=== PATIENT | female | born 1965 | race American Indian/Alaskan Native ===

== ENCOUNTER 2019-02-06 12:35 | Emergency (ER) | payer OTHER ==
[~2019-02-06] VITALS: Ht 170.2 cm; Wt 113.4 kg
[2019-02-06] MEDS ORDERED: VITAMIN D1000 UNIT PO (12:46)
[2019-02-06] MEDS ORDERED: LEVOTHYROXINE100 MCG PO (12:47)
[2019-02-06] MEDS ORDERED: FUROSEMIDE40 MG PO (12:47)
[2019-02-06] MEDS ORDERED: CLARITIN5 MG PO (12:48)
== END 2019-02-06 13:52 | disposition home or self-care (01) ==
LOC: ED 12:35
DX: S80.12XA Contusion of left lower leg, initial encounter (principal); I10 Essential (primary) hypertension; Z88.2 Allergy status to sulfonamides; Z79.899 Other long term (current) drug therapy; W18.40XA Slipping, tripping and stumbling without falling, unspecified, initial encounter
CPT/HCPCS: 73590; 96372; 99283-25; J1885

== ENCOUNTER 2019-12-23 05:40 | Day surgery (SDC) | payer OTHER ==
[~2019-12-23] VITALS: Ht 170.2 cm; Wt 123.4 kg
--- NOTE | ~2019-12-23 | OR ---
[facility] [address] [place], [place] [address] Draft DATE OF OPERATION: 12/23/2019 SURGEON: Felecia Balderrama MD DATE OF PROCEDURE: 12/23/2019 CYLINDER PRESS OPERATOR: Dr. Ricardo PREOPERATIVE DIAGNOSES: Complex atypical endometrial hyperplasia, morbid obesity. POSTOPERATIVE DIAGNOSES: Complex atypical endometrial hyperplasia, morbid obesity, pending pathology. PROCEDURES: Total laparoscopic hysterectomy, bilateral salpingo-oophorectomy, cystoscopy. ANESTHESIA: General ET. ESTIMATED BLOOD LOSS: 150 mL. DRAINS: Mont[place] catheter. INDICATIONS AND FINDINGS: The patient is a 54-year-old female 2, para 2, who has been having abnormal bleeding and during the course of her evaluation, she was found to have atypical hyperplasia of the endometrium. She is now being admitted for definitive surgery. At the time of surgery, exam under anesthesia was normal though it was limited because of her morbid obesity. At the time of laparoscopy, the uterus appeared normal as did the ovaries. The tubes had evidence of prior tubal ligation. She did have some adhesions in the cul-de-sac of the epiploica of the bowel to the posterior cervix. DESCRIPTION OF PROCEDURE: The patient was prepped and draped in the dorsal lithotomy position and a weighted speculum was placed. The anterior lip of the cervix was visualized and grasped with a PATIENT NAME: MARTY HAMPTON OPERATIVE REPORT DATE OF : 65 REPORT #: [id number] PHYSICIAN: FELECIA BALDERRAMA MD PCP: ESPERANZA MOSQUEDA REPORT IS CONFIDENTIAL AND NOT TO BE RELEASED WITHOUT AUTHORIZATION [facility] [address] [place], [place] [address] Draft single-tooth tenaculum. Uterus was then sounded to 10 cm. The endocervical canal was then dilated and a VCare cannula was then placed and the balloon inflated at the fundus. The tenaculum and speculum removed. The cup was fitted over the cervix and the locking cap was fitted into place. A Montenegro catheter was also placed at that time. Attention was then directed above. The infraumbilical area was injected with 0.5% Marcaine plain. An incision was made with a knife in this area and then each layer was serially elevated, incised until the fascia was opened and identified. This portion was difficult because of her morbid obesity. When the fascia was open, stay sutures of 0 Vicryl were placed. The peritoneum was then opened bluntly. The bariatric Hunter cannula was placed. The balloon was inflated. Placement of the scope confirmed proper positioning. The abdomen was then insufflated with CO2. The abdomen was appropriately distended. A puncture site was made on the left side slightly below the level of the umbilicus. She had a previous laparoscopy done one month ago and this same incision was used. This area was injected with Marcaine. Incision made with a knife and a 5 mm port placed under direct vision. A 3rd port was then placed on the right side. It was in the same general area. This area could not be transilluminated. It was quite distant from the umbilicus and was felt to be safe area. This area was injected with the Marcaine, incision made with a knife and the Veress needle inserted followed by the expanding port. Following this, the abdomen was evaluated and it was felt that the planned procedure was appropriate. We begun using the LigaSure [place] device on the patient's left side. The left tube and utero-ovarian pedicle were serially coagulated and divided. The round ligament was also serially coagulated and divided. Following this, the anterior leaf of the peritoneum could be entered and opened and this was carried out superficially to mid cuff anteriorly. The peritoneum was also taken down posteriorly. Following this, the uterine vessels were skeletonized and coagulated multiple times with the LigaSure [place] device. These were then divided. Further dissection was done both posteriorly and anteriorly. Following this, attention was directed to the patient's right. The same procedure was carried out with serially coagulation and division of the utero-ovarian pedicle, tube and round ligament. Again, the anterior leaf of the peritoneum was incised allowing for completion of the bladder flap. The peritoneum was taken down posteriorly as well. The uterine vessels were then skeletonized and coagulated multiple times and then divided. Further dissection was done around the cup. The cup could be felt all around, though it was very difficult to do any further dissection as there was limited traction with our instrument. There is also some difficulty because of her morbid obesity and the difficulty with her bowel coming down into the pelvis. At this point, however, it was felt that the specimen could be removed. The Sonicision was then used and began posteriorly and the specimen from the vaginal cuff. It was begun posteriorly, wrapped around the left side into anteriorly and then again from posterior wrapped around anteriorly on the right. Following this, the specimen was removed vaginally. After removal of the specimen, the vagina was packed with a glove with a wet lap. This allowed the pneumoperitoneum to re-accumulate. Attention was redirected above and the abdomen was copiously irrigated PATIENT NAME: MARTY HAMPTON OPERATIVE REPORT DATE OF : 65 REPORT #: [id number] PHYSICIAN: FELECIA BALDERRAMA MD PCP: ESPERANZA MOSQUEDA REPORT IS CONFIDENTIAL AND NOT TO BE RELEASED WITHOUT AUTHORIZATION [facility] [address] [place], [place] [address] Draft and inspected. The cuff was identified and the cuff was closed using the Endo Stitch. It was begun at the patient's right uterosacral ligament incorporating the vaginal mucosa both posteriorly and anteriorly and run to the patient's left uterosacral ligament and then back to the center. Following this, the ovaries were removed. The patient's left ovary was grasped and the infundibulopelvic ligament was serially coagulated and divided. An Endoloop of 0 Vicryl was placed over the infundibulopelvic ligament to further aid in hemostasis. The specimen was pulled out through the port without difficulty. The patient's right ovary was removed in the same manner. Again, an Endoloop of 0 Vicryl was placed for further hemostasis on the infundibulopelvic ligament. The specimen was also pulled through the right port. The abdomen was then again irrigated, inspected, and there was some bleeding near the right cuff slightly outside of this. This was controlled with a spatula tip cautery. Following this, further irrigation was done and the pressure turned down and there was no evidence of any ongoing bleeding in that area. Following this, Evicel was sprayed over the defect in the cuff and on the pelvic sidewalls to further aid in hemostasis. The instruments removed from the abdomen after allowing as much CO2 as possible to escape. The fascial incision of the umbilicus was re-identified and was closed with a running suture of 0 Vicryl. Bleeding points were controlled superficially with cautery. Deep space suture was placed using 0 Vicryl at the umbilicus. The skin incisions were closed with subcuticular sutures of 3-0 Vicryl Rapide. Glue was also then placed. There was no Steri-Strips placed. She has had a previous reaction. Band-aids were then used on the incisions. Attention was directed down below. The Montenegro catheter was removed. Cystoscopy was begun. The patient had received IV fluorescein prior to the cystoscopy. The bladder was filled and there was no evidence of any defects. Both ureteral orifices were identified and free spill of urine was seen from each of these. There was no fluorescein seen at this point, however. Following this, the cystoscopy was complete. The bladder was emptied and the Montenegro catheter replaced. All sponge and needle counts were correct. She tolerated the procedure well and was taken to the recovery room in good condition. MD SANTANA Jimenez/MODL /[id number] cc: [facility] PATIENT NAME: MARTY HAMPTON OPERATIVE REPORT DATE OF : 65 REPORT #: [id number] PHYSICIAN: FELECIA BALDERRAMA MD PCP: ESPERANZA MOSQUEDA REPORT IS CONFIDENTIAL AND NOT TO BE RELEASED WITHOUT AUTHORIZATION [facility] [address] [place] [address] [place] [address] Draft Warner Ricardo MD Copies: [facility] WARNER RICARDO MD ~ PATIENT NAME: MARTY HAMPTON OPERATIVE REPORT DATE OF : 65 REPORT #: [id number] PHYSICIAN: FELECIA BALDERRAMA MD PCP: ESPERANZA MOSQUEAD REPORT IS CONFIDENTIAL AND NOT TO BE RELEASED WITHOUT AUTHORIZATION
[~2019-12-23 05:40] MED LIST: CLARITIN10 MG PO; CLARITIN5 MG PO; FUROSEMIDE40 MG PO; LEVOTHYROXINE100 MCG PO; OXYBUTYNIN CHLOR5 MG PO; VITAMIN D1000 UNIT PO
--- NOTE | 2019-12-23 10:43 | NUR ---
12/23/19 1043 Sheets,Francine 1032 PT ARRIVED TO PACU ON 6L VIA MASK, PT ASLEEP AND SNORING NOTED. VSS. 1039 PT WOKE TO TACTILE STIMULI AND IS REORIENTED TO PACU. O2 MASK REMOVED AND PT FALLS EASILY BACK TO SLEEP.
--- NOTE | 2019-12-23 11:56 | NUR ---
CALL LIGHT WITHIN REACH. ICED WATER GIVEN. CONTINUOUS PULSE OXIMETER IN PLACE. OXYGEN DC ON ARRIVAL TO PR. LINDA ARELLANO ON WARM. SNORING SOUNDS HEARD AFTER PRN FOR PAIN GIVEN.
--- NOTE | 2019-12-23 12:06 | NUR ---
PATIENT DESATURATES TO 88% ON RA. OXYGEN INCREASED TO 1L VIA NC. CONTINUOUS PULSE OXIMETER REMAINS IN PLACE.
[2019-12-23] MEDS ORDERED: PERCOCET 5-3251 EACH PO (12:20)
[2019-12-23] MEDS ORDERED: MOTRIN IB200 MG PO (12:20)
[2019-12-23] MEDS ORDERED: ONDANSETRON ODT8 MG PO (12:21)
--- NOTE | 2019-12-23 12:52 | NUR ---
PATIENT RESTING QUIETLY WITH EYES CLOSED. RESPIRATIONS ARE EVEN AND UNLABORED. PATIENT WAKES WHEN VITAL SIGNS ARE TAKEN AND FALLS QUICKLY BACK TO SLEEP. OXYGEN TURNED OFF. CONTINUOUS PULSE OXIMETER REMAINS IN PLACE.
--- NOTE | 2019-12-23 13:53 | NUR ---
PITTS CATHETER BALLOON DEFLATED FOR 9ML AND PITTS IS DC WNL. PATIENT TOLERATES THAT WELL. 300 ML BRIGHT YELLOW URINE EMPTIED FROM PITTS OVERNIGHT BAG. PUDDING AND CRACKERS GIVEN. HOB ELEVATED. PATIENT TAKES DRINK OF WATER AND TOLERATES THAT WELL.
--- NOTE | 2019-12-23 16:43 | NUR ---
LE 1620: PATIENT IS UP TO THE BATHROOM WITH MY STANDBY. PATIENT AMBULATES WELL, VOIDS 500 ML BRIGHT YELLOW URINE AND IS BACK IN HER ROOM. UMBILICUS SITE IS REINFORCED WITH GAUZE AND TAPE. DISCHARGE INSTRUCTIONS ARE GIVEN. PATIENT VERBALIZES UNDERSTANDING OF THAT. PATIENT TRANSFERS SELF TO WHEELCHAIR AND THEN TO PERSONAL VEHICLE AND TOLERATES THAT WELL.
--- NOTE | 2019-12-25 16:56 | PATH ---
[facility] [address] [place], [place] [address] Signed SPECIMEN(S): A CERVIX, UTERUS, OVARIES AND TUBES SPECIMEN SOURCE: A. CERVIX, UTERUS, OVARIES AND TUBES CLINICAL HISTORY: Postmenopausal bleeding; endometrial hyperplasia with atypia. TLH, BSO. FINAL PATHOLOGIC DIAGNOSIS: Cervix, uterus, bilateral ovaries and tubes, hysterectomy with bilateral salpingo-oophorectomy: - Unremarkable ectocervical epithelia. - Endocervical epithelium with focal squamous metaplasia. - Nabothian cysts. - Uterus with proliferative phase endometrium and adenomyosis. - Ovaries with corpora albicantia and surface epithelial inclusion cysts. - Unremarkable fallopian tubes. TWK:caw:C2NR MICROSCOPIC EXAMINATION: Histologic sections of all submitted blocks are examined by light microscopy. These findings, together with the gross examination, support the pathologic diagnosis. GROSS DESCRIPTION: The specimen, labeled "LM," and designated "cervix, uterus, bilateral ovaries and tubes" per the requisition is received in formalin and consists of 97.0 g uterus (2.8 x 5.8 x 3.7 cm) and attached cervix (3.0 cm in length by 3.6 cm in diameter) with a pink-viramontes to hemorrhagic cervical mucosa, and circular os(0.6 cm in diameter). Also received are two detached ovaries with corresponding fimbriated fallopian tubes (ovary #1: 2.2 x 1.5 x 0.4 cm, fallopian tube #1: 2.7 cm in length by 0.6 cm in diameter, ovary #2: 1.7 x 1.6 x 0.5 cm, fallopian tube #2: 1.9 cm in length by 0.7 cm in diameter). The fallopian tubes and ovaries are grossly unremarkable. The serosa of the uterus is pink-viramontes smooth and intact. The specimen is opened to reveal a pink-viramontes endocervical canal (3.0 cm in length and 1.0 cm in diameter), and an endometrial canal (5.4 cm superior to inferior, and 1.8 cm cornu to cornu) with a pink-viramontes to hemorrhagic endometrial lining (0.3 cm thick). Sectioning reveals a trabeculated PATIENT NAME: MARTY HAMPTON PATHOLOGY DATE OF : 65 REPORT #: [id number] PHYSICIAN: KEIKO LYLES PCP: ESPERANZA MOSQUEDA REPORT IS CONFIDENTIAL AND NOT TO BE RELEASED WITHOUT AUTHORIZATION [facility] [address] [place], [place] [address] Signed myometrium with intramural hemorrhage and a cystic space resembling endometrium (0.3 x 0.2 x 0.1 cm). Loss Prevention Analyst sections are submitted as follows: (A1) Anterior and posterior cervix (A2) Anterior and posterior full-thickness endomyometrium (A3) Endomyometrium with hemorrhage and cystic area (A4 A5) Fallopian tubes and ovaries AC (under the direct supervision of a pathologist) The Gross Description was prepared using a voice recognition system. The report was reviewed for accuracy; however, sound-alike word errors, addition and/or deletions may occur. If there is any question about this report, please contact Client Services. PERFORMING LABORATORY: The technical component was performed by [employer] [facility], [address] [place] [id number] (Outbound Sales Consultant: Melanie Malagon MD; CLIA# [id number]). Professional interpretation was performed by [employer], [facility], [address] [place] [address] (CLIA# [id number]). Diagnostician: David Callejas MD Pathologist Electronically Signed 12/25/2019 Copies: ~ PATIENT NAME: MARTY HAMPTON PATHOLOGY DATE OF : 65 REPORT #: [id number] PHYSICIAN: KEIKO LYLES PCP: ESPERANZA MOSQUEDA REPORT IS CONFIDENTIAL AND NOT TO BE RELEASED WITHOUT AUTHORIZATION
== END 2019-12-23 16:30 | disposition home or self-care (01) ==
LOC: DS 05:40
PROVIDERS: Obstetrics & Gynecology
PROC: 0UT94ZZ Resection of Uterus, Percutaneous Endoscopic Approach (ICD-10-PCS; principal; 2019-12-23 06:45)
PROC: 0UT24ZZ Resection of Bilateral Ovaries, Percutaneous Endoscopic Approach (ICD-10-PCS; 2019-12-23 06:45)
PROC: 0UT74ZZ Resection of Bilateral Fallopian Tubes, Percutaneous Endoscopic Approach (ICD-10-PCS; 2019-12-23 06:45)
DX: N87.9 Dysplasia of cervix uteri, unspecified (principal); N83.202 Unspecified ovarian cyst, left side; N83.201 Unspecified ovarian cyst, right side; E66.01 Morbid (severe) obesity due to excess calories; Z68.41 Body mass index [BMI] 40.0-44.9, adult; Z79.899 Other long term (current) drug therapy; Z88.2 Allergy status to sulfonamides; Z88.8 Allergy status to other drugs, medicaments and biological substances
CPT/HCPCS: 00840; J0330; J0694; J1100; J1644; J1885; J2001; J2250; J2270; J2405; J2704; J2765; J3010; J3475; J7121

== ENCOUNTER 2020-05-27 09:33 | Day surgery (SDC) | payer OTHER ==
[~2020-05-27] VITALS: Ht 170.2 cm; Wt 123.4 kg
[~2020-05-27 09:33] MED LIST changes: +MOTRIN IB200 MG PO; +ONDANSETRON ODT8 MG PO; +PERCOCET 5-3251 EACH PO
--- NOTE | 2020-05-27 11:03 | NUR ---
PT ALERT, ORIENTED AND SUPPORTED BY HER WILLIAN. PT HAS HAD PREVIOUS SURGERY HERE VERY RECENTLY. ALL QUESTIONS ASKED ANSWERED PT REQUESTED PRAYER
--- NOTE | 2020-05-27 11:55 | NUR ---
05/27/20 1155 Sheets,Francine 1133 PT ARRIVED TO PACU ON 3L VIA NC, PT WAKES EASILY AND IS REORIENTED TO PACU. VSS. 1140 PT ROLLED TO BACK AND HOB INCREASED SLIGHTLY. 1147 PERIODS OF APNEA NOTED AND PT REPORTS "I HAVE BEEN TOLD I STOP BREATHING IN MY SLEEP." SLEEP APNEA INFORMATION GIVEN AND TOLD TO FOLLOW UP WITH PCP. 1151 MD AT BEDSIDE TALKING TO PT.
--- NOTE | 2020-05-27 12:44 | NUR ---
RETURNED IS DIZZY.
--- NOTE | 2020-05-27 13:04 | NUR ---
NO DIZZINESS BUT A LITTLE NAUSEATED. WAS MEDICATED IN PACU.
--- NOTE | 2020-05-27 13:40 | NUR ---
STATES SHES READY TO GO HOME. NAUSEA BETTER CONTS TO HAVE NO DIZZINES. GETTING DRESSED.
--- NOTE | 2020-05-31 14:05 | PATH ---
[facility] [address] [place], [place] [address] Signed SPECIMEN(S): A SIGMOID SPECIMEN(S): B COLON POLYP AT 15 CM SPECIMEN SOURCE: A. SIGMOID B. COLON POLYP AT 15 CM CLINICAL HISTORY: Colonoscopy. History of acute diverticulitis, LLQ pain. Postop: Polyp x 1. MICROSCOPIC DESCRIPTION: Histologic sections of all submitted blocks are examined by light microscopy. These findings, together with the gross examination, support the pathologic diagnosis. Immunostains are performed on block (B1) with appropriate controls and show the following: - CK7: Negative in tumor cells. - CK20: Negative in tumor cells.. - Chromogranin: Positive in tumor cells. - Synaptophysin: Positive in tumor cells. - CD56: Positive in tumor cells. JVR:jose david FINAL PATHOLOGIC DIAGNOSIS: A. Sigmoid colon, biopsy: - Benign colonic mucosa, negative for specific diagnostic abnormality. B. Colon polyp at 15 cm: - Low grade neuroendocrine (carcinoid) tumor. COMMENT: As part of [employer]' Quality Improvement Program, this case was reviewed by another member of our pathology staff. The results will be called to the office of Dr. Hilliard by a member of the [facility] Client Services team and documented separately. JVR:DN:jose david:C2NR GROSS DESCRIPTION: Two specimens are received in two containers, labeled "LM." A. The specimen, labeled "LM," and designated on the requisition "sigmoid biopsy," is received in formalin and consists of one fragment of pink-viramontes tissue (0.4 x 0.2 x 0.2 cm). The specimen is submitted entirely in cassette (A1). PATIENT NAME: MARTY HAMPTON PATHOLOGY DATE OF : 65 REPORT #: [id number] PHYSICIAN: KEIKO LYLES PCP: HOUSTON OLIVEIRA REPORT IS CONFIDENTIAL AND NOT TO BE RELEASED WITHOUT AUTHORIZATION [facility] [address] [place], [place] [address] Signed B. The specimen, labeled "LM," and designated on the requisition "colon polypectomy at 15 cm," is received in formalin and consists of one fragment of pink-viramontes tissue (0.3 x 0.3 x 0.2 cm). The specimen is submitted entirely in cassette (B1). AC (under the direct supervision of a pathologist) The Gross Description was prepared using a voice recognition system. The report was reviewed for accuracy; however, sound-alike word errors, addition and/or deletions may occur. If there is any question about this report, please contact Client Services. ADDITIONAL NOTES: Immunohistochemical and/or in situ hybridization studies were performed on this case with the appropriate positive controls that react as expected. This test was developed and its performance characteristics determined by [facility]. It has not been cleared or approved by the U.S. Food and Drug Administration. The FDA has determined that such clearance or approval is not necessary. This test is used for clinical purposes. It should not be regarded as investigational or for research. [facility] is certified under the Clinical Laboratory Improvement Amendments of 1988 (CLIA) as qualified to perform high complexity clinical laboratory testing. PERFORMING LABORATORY: The technical component was performed by [facility], [address] [place] [id number] (Superintendent Local: Melanie Malagon MD; CLIA# [id number]). Professional interpretation was performed by [facility], [facility], [address] [place] [address], [place] [address] (Superintendent Local: Alexys Serna M.D.). Diagnostician: Alexys Serna MD Pathologist Electronically Signed 05/31/2020 Copies: ~ PATIENT NAME: MARTY HAMPTON PATHOLOGY DATE OF : 65 REPORT #: [id number] PHYSICIAN: KEIKO PATHOLOGY PCP: HOUSTON OLIVEIRA REPORT IS CONFIDENTIAL AND NOT TO BE RELEASED WITHOUT AUTHORIZATION
--- NOTE | 2020-06-01 12:08 | OR ---
[facility] [address] [place], [place] [address] Signed DATE OF OPERATION: 05/27/2020 SURGEON: Bill Bills MD PREOPERATIVE DIAGNOSES: 1. Persistent left lower abdominal pain; no evidence of diverticulosis or hernia on CT scan. 2. History of total hysterectomy with bilateral salpingo-oophorectomy for endometriosis. 3. Morbid obesity. POSTOPERATIVE DIAGNOSES: No evidence of diverticular disease. Small polyp rectosigmoid (excised). PROCEDURES: 1. Total colonoscopy to cecum with biopsy of the left colon and sigmoid. 2. Excision of rectosigmoid polyp (cold morcellation technique). ANESTHESIA: Intravenous sedation, fentanyl 150 mcg, Versed 6 mg. INDICATION: This 55-year-old woman underwent laparoscopic hysterectomy with bilateral salpingo-oophorectomy by Dr. Balderrama for endometriosis. She says she had no left lower abdominal pain prior to operation though she must have had something to she had persistent left lower abdominal pain, which has been treated empirically as diverticulitis. This did not resolve with antibiotic therapy. She was referred for further evaluation. A CT scan was performed, which showed no evidence of trocar site hernia through her thick abdominal wall pannus noted to show adenopathy or to my evaluation and that of the radiologist any actual diverticula and certainly no active diverticulitis. There is no sign of bowel obstruction. She is admitted at this time to undergo colonoscopy to assess for diverticular disease, inflammatory problems, stricture, neoplasm and of course possible intramural or mucosal endometriosis of the colon itself. She understands the risks of bleeding, infection, and perforation, and wished to proceed. FINDINGS: Prep was good. Complete colonoscopy was undertaken of the cecum. The only finding of note was a small polyp of the rectosigmoid which was excised. There was no endoscopic evidence of diverticula. There was no evidence of colitis and certainly no evidence of Electronically Signed By: BILL BILLS MD 06/01/20 1208 PATIENT NAME: MARTY HAMPTON OPERATIVE REPORT DATE OF : 65 REPORT #: [id number] PHYSICIAN: BILL BILLS MD PCP: JYOTI OLIVEIRA REPORT IS CONFIDENTIAL AND NOT TO BE RELEASED WITHOUT AUTHORIZATION [facility] [address] [place], [place] [address] Signed mucosal intramural endometrioma. DESCRIPTION OF PROCEDURE: The patient was brought to the endoscopy suite and placed in lateral decubitus position given intravenous sedation to the point of slurred speech and nystagmus. Digital rectal examination was normal. Olympus video colonoscope was passed in the rectum and manipulated throughout the colon ultimately intubating the cecum itself. The ileocecal valve and appendiceal orifice were normal. Scope was withdrawn from that point and examination throughout showed no sign of abnormality specifically no endometrioma, colitis, or diverticula. Biopsies were taken of the sigmoid to assess for occult colitis. Withdrawal to the rectosigmoid showed a 4 mm smooth adenomatous appearing polyp, this was excised with cold morcellation technique. The remaining rectosigmoid was normal. Scope was removed. The patient was taken to the recovery room in good condition. CONCLUDING DIAGNOSES: It is uncertain exactly the source of her ongoing left lower abdominal pain, but it appears not to be related to neoplasm or diverticulitis of the colon. There is no evidence of intramural endometrioma. We will review her pathology reports and consider further her situation. The CT scan was reviewed once again showing no sign of trocar site hernia or other abnormality. The possibility of persistent endometriosis is always a consideration, but with bilateral salpingo-oophorectomy, symptoms should mohinder with cessation of hormonal stimulation. The possibility of scarring related to the hysterectomy or endometrioma in evolution and atresia is also consideration. MD ADRIANNE Davis/CHIDIL /[id number] cc: MD Jyoti Jimenez Electronically Signed By: BILL BILLS MD 06/01/20 1208 PATIENT NAME: MARTY HAMPTON OPERATIVE REPORT DATE OF : 65 REPORT #: [id number] PHYSICIAN: BILL BILLS MD PCP: JYOTI OLIVEIRA REPORT IS CONFIDENTIAL AND NOT TO BE RELEASED WITHOUT AUTHORIZATION [address] [address] Signed Copies: NATASHA BALDERRAMA MD, ELIZABETH ~ Electronically Signed By: BILL BILLS MD 06/01/20 1208 PATIENT NAME: MARTY HAMPTON OPERATIVE REPORT DATE OF : 65 REPORT #: [id number] PHYSICIAN: BILL BILLS MD PCP: JYOTI OLIVEIRA REPORT IS CONFIDENTIAL AND NOT TO BE RELEASED WITHOUT AUTHORIZATION
== END 2020-05-27 13:48 | disposition home or self-care (01) ==
LOC: OPS 09:33 → DS 09:35 → OPS 10:30 → DS 10:30 → OPS 13:48
PROVIDERS: ATTEND Surgery
PROC: 0DBN8ZZ Excision of Sigmoid Colon, Via Natural or Artificial Opening Endoscopic (ICD-10-PCS; principal; 2020-05-27 10:30)
DX: D3A.025 Benign carcinoid tumor of the sigmoid colon (principal); E03.9 Hypothyroidism, unspecified; J45.20 Mild intermittent asthma, uncomplicated; G47.30 Sleep apnea, unspecified; E66.01 Morbid (severe) obesity due to excess calories; Z90.710 Acquired absence of both cervix and uterus; Z88.2 Allergy status to sulfonamides; Z79.899 Other long term (current) drug therapy; Z68.41 Body mass index [BMI] 40.0-44.9, adult
CPT/HCPCS: 99153; G0500; J2250; J2405; J3010; J7121

== ENCOUNTER 2020-07-19 17:09 | Emergency (ER) | payer OTHER ==
[~2020-07-19] VITALS: Ht 170.2 cm; Wt 123.4 kg
[2020-07-19] MEDS ORDERED: CRUTCH1 EACH MISC (19:45)
== END 2020-07-19 20:05 | disposition home or self-care (01) ==
LOC: ED 17:09
DX: S87.82XA Crushing injury of left lower leg, initial encounter (principal); W23.0XXA Caught, crushed, jammed, or pinched between moving objects, initial encounter; I10 Essential (primary) hypertension; Z88.2 Allergy status to sulfonamides; Z79.899 Other long term (current) drug therapy
CPT/HCPCS: 73560; 73590; 73610; 99283-25